=== PATIENT | female | born 1995 | race American Indian/Alaskan Native ===

== ENCOUNTER 2020-07-02 18:44 | Emergency (ER) | payer MEDICAID ==
--- NOTE | 2020-07-02 18:50 | Emergency Department Report ---
Blank Doc - Documentation Documentation: 24-year-old female that presents with abdominal pain and n/v. This initial assessment/diagnostic orders/clinical plan/treatment(s) is/are subject to change based on patient's health status, clinical progression and re- assessment by fellow clinical providers in the ED. Further treatment and workup at subsequent clinical providers discretion. Patient/guardians urged not to elope from the ED as their condition may be serious if not clinically assessed and managed. Initial orders include: 1- Patient sent to [facility] for further evaluation and treatment 2- labs 3- UA
[2020-07-02 18:53] VITALS: BP 125/66
[2020-07-02 19:38] LABS: Basophils % (Auto) 0.4 % (0.0-1.8); Eosinophils # (Auto) 0.1 K/mm3 (0.0-0.4); Eosinophils % (Auto) 0.6 % (0.0-4.3); Hematocrit 34.6 % (30.3-42.9); Hemoglobin 12.2 gm/dl (10.1-14.3); Lymphocytes # (Auto) 2.4 K/mm3 (1.2-5.4); Lymphocytes % (Auto) 22.3 % (13.4-35.0); Mean Corpuscular HGB Conc 35 % (30-34); Mean Corpuscular Volume 94 fl (79-97); Monocytes # (Auto) 0.6 K/mm3 (0.0-0.8); Monocytes % (Auto) 5.5 % (0.0-7.3); Platelet Count 334 K/mm3 (140-440); Red Blood Count 3.69 M/mm3 (3.65-5.03); Red Cell Distribution Width 14.1 % (13.2-15.2)
[2020-07-02 19:42] LABS: Alanine Aminotransferase 12 units/L (7-56); Albumin 4.1 g/dL (3.9-5); Blood Urea Nitrogen 7 mg/dL (7-17); Hemolysis Index 16
[2020-07-02 19:49] LABS: BUN/Creatinine Ratio 14
[2020-07-02] MEDS ORDERED: METOCLOPRAMIDE 10 MG/2 ML INJ IV ONE (21:01)
[2020-07-02] MEDS ORDERED: FAMOTIDINE 20 MG/2 ML INJ IV ONE (21:01)
[2020-07-02] MEDS ORDERED: LACTATED RINGERS 1,000 ML IV ONE (21:01)
[2020-07-02] MEDS ORDERED: diphenhydrAMINE 50 MG/ML VIAL IV ONE (21:01)
--- NOTE | 2020-07-02 21:05 | Emergency Department Report ---
ED General Adult HPI - General Chief complaint: Abdominal Pain Stated complaint: VOMITTING/ABD PAIN Time Seen by Provider: 07/02/20 18:49 Source: patient Mode of arrival: Ambulatory Limitations: No Limitations - History of Present Illness Initial comments: 24-year-old -Polish female patient presents with complaints of nausea and vomiting and abdominal pain x4 days. She reports 3 days ago she had a positive home test. She states she is A0. She denies any vaginal bleeding, vaginal discharge, dyspareunia, dysuria/hematuria/urinary frequency, hematemesis/coffee-ground emesis, diarrhea/constipation, or fever/chills/sweats. Patient rates her current pain as a 4/10 in severity and describes it as a cramping and burning pain. She admits to history of hyperemesis gravidarum in her previous . 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 - Related Data Previous Rx's Medication Instructions Recorded Last Taken Type Metoclopramide [Reglan] 10 mg PO TID PRN #30 tab 07/03/20 Unknown Rx diphenhydrAMINE [Benadryl CAP] 25 mg PO Q8HR PRN #30 capsule 07/03/20 Unknown Rx Allergies Allergy/AdvReac Type Severity Reaction Status Date / Time acetaminophen [From Percocet] Allergy Shortness Verified 07/02/20 18:48 of Breath oxycodone [From Percocet] Allergy Shortness Verified 07/02/20 18:48 of Breath ED Review of Systems ROS: Stated complaint: VOMITTING/ABD PAIN Other details as noted in HPI Constitutional: denies: chills, diaphoresis, fever, malaise, weakness Respiratory: denies: cough, shortness of breath Cardiovascular: denies: chest pain Gastrointestinal: abdominal pain, nausea, vomiting. denies: diarrhea, constipation, hematemesis, melena, hematochezia Genitourinary: denies: urgency, dysuria, frequency, hematuria, discharge, abnormal menses, dyspareunia Skin: denies: change in color Neurological: denies: headache Hematological/Lymphatic: denies: swollen glands ED Past Medical Hx - Past Medical History Hx Asthma: Yes - Surgical History Additional Surgical History: C SECTION - Social History Smoking Status: Never Smoker Substance Use Type: None - Medications Home Medications: Home Medications Medication Instructions Recorded Confirmed Last Taken Type Metoclopramide [Reglan] 10 mg PO TID PRN #30 tab 07/03/20 Unknown Rx diphenhydrAMINE [Benadryl CAP] 25 mg PO Q8HR PRN #30 capsule 07/03/20 Unknown Rx ED Physical Exam - General Limitations: No Limitations General appearance: alert, in no apparent distress - Head Head exam: Present: atraumatic, normocephalic - Eye Eye exam: Present: normal appearance. Absent: scleral icterus - Respiratory Respiratory exam: Absent: respiratory distress - Cardiovascular Cardiovascular Exam: Present: regular rate - GI/Abdominal GI/Abdominal exam: Present: soft, tenderness (Epigastric and suprapubic, mild), normal bowel sounds. Absent: distended, guarding, rebound, rigid - Back Exam Back exam: Present: full ROM - Neurological Exam Neurological exam: Present: alert, oriented X3, normal gait - Psychiatric Psychiatric exam: Present: normal affect, normal mood - Skin Skin exam: Present: warm, dry, intact, normal color. Absent: rash, cyanosis, diaphoretic, ecchymosis ED Course Vital Signs 07/02/20 18:49 Temperature 97.9 F Pulse Rate 82 Respiratory 20 Rate Blood Pressure 125/66 O2 Sat by Pulse 99 Oximetry ED Medical Decision Making - Lab Data Result diagrams: 07/02/20 19:02 07/02/20 19:02 - Medical Decision Making 24-year-old -Polish female patient presents with complaints of nausea and vomiting and abdominal pain x4 days. She reports 3 days ago she had a positive home test. She states she is A0. She denies any vaginal bleeding, vaginal discharge, dyspareunia, dysuria/hematuria/urinary frequency, hematemesis/coffee-ground emesis, diarrhea/constipation, or fever/chills/sweats. Patient rates her current pain as a 4/10 in severity and describes it as a cramping and burning pain. She admits to history of hyperemesis gravidarum in her previous . 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 No significant abnormalities are noted on labs. Ultrasound shows 5-week 3-day IUP. Her vitals are normal, she is tolerating fluids orally without difficulty, she is stable for discharge home. Referral for [facility] given and recommend follow-up within 3 to 5 days. Strict return precautions were discussed in detail with patient who verbalized understanding. Critical care attestation.: If time is entered above; I have spent that time in minutes in the direct care of this critically ill patient, excluding procedure time. ED Disposition Clinical Impression: Hyperemesis gravidarum Abdominal pain in Qualifiers: Trimester: first trimester Qualified Code(s): O26.891 - Other specified related conditions, first trimester; R10.9 - Unspecified abdominal pain Disposition: TO HOME OR SELFCARE Is pt being admited?: No Condition: Stable Instructions: Abdominal Pain (ED), Abdominal Pain During , Hyperemesis Gravidarum Prescriptions: diphenhydrAMINE [Benadryl CAP] 25 mg PO Q8HR PRN #30 capsule PRN Reason: Nausea And Vomiting Metoclopramide [Reglan] 10 mg PO TID PRN #30 tab PRN Reason: Nausea Referrals: [facility] [Provider Group] - 3-5 Days
[2020-07-02 21:17] LABS: Bacteria,Urine 1+ /HPF (Negative); Bilirubin,Urine NEG (Negative); Blood,Urine NEG (Negative); Color,Urine Yellow (Yellow); Mucus,Urine 3+ /HPF; Urobilinogen,Urine < 2.0 mg/dL (<2.0)
--- NOTE | 2020-07-02 23:44 | Ultrasound Report ---
EXAMINATION: Obstetrical Ultrasound INDICATION: Abdominal pain in early COMPARISON: None FINDINGS: There is a single, living intrauterine . [place]-rump length = 0.3 cm = 5 weeks, 6 day(s). heart rate is 114 beats per minute. The bilateral adnexal regions appear within normal limits. There is no free pelvic fluid. IMPRESSION: 1. Single living intrauterine with details as above. Signer Name: Natalie Ojeda MD Signed: 07/02/2020 11:39 PM Workstation Name: [id number]
== END 2020-07-03 00:25 | disposition home or self-care (01) ==
LOC: ED 18:44
DX: O21.0 Mild hyperemesis gravidarum (principal); O21.8 Other vomiting complicating pregnancy; J45.909 Unspecified asthma, uncomplicated; Z3A.01 Less than 8 weeks gestation of pregnancy; Z98.890 Other specified postprocedural states; Z79.899 Other long term (current) drug therapy; Z88.8 Allergy status to other drugs, medicaments and biological substances
CPT/HCPCS: 36415; 76801; 76817; 80053; 81001; 83690; 84702; 85025; 87086; 96361; 96374; 96375; 99284; J1200; J2765; J7120; 87076; 87186

== ENCOUNTER 2021-01-23 06:23 | Outpatient (CLI) | payer MEDICAID ==
[2021-01-23] MEDS ORDERED: LACTATED RINGERS 1,000 ML ONE (06:56)
[2021-01-23] MEDS ORDERED: LACTATED RINGERS 1,000 ML IV SCH (07:15)
[2021-01-23 07:26] VITALS: BP 106/66
== END 2021-01-23 09:04 | disposition home or self-care (01) ==
LOC: TRG 06:23 → APU 06:43 → TRG 09:04
PROVIDERS: ATTEND Obstetrics & Gynecology
DX: O62.9 Abnormality of forces of labor, unspecified (principal); Z3A.35 35 weeks gestation of pregnancy
CPT/HCPCS: 59025; 96361

== ENCOUNTER 2021-04-20 19:58 | Emergency (ER) | payer MEDICAID, OTHER ==
[2021-04-20 20:41] VITALS: BP 125/86
[2021-04-20] MEDS ORDERED: IBUPROFEN 800 MG TAB PO ONE (21:22)
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
== END 2021-04-20 21:50 | disposition home or self-care (01) ==
LOC: ED 19:58
DX: R51.9 Headache, unspecified (principal); J45.909 Unspecified asthma, uncomplicated; Z98.890 Other specified postprocedural states; Z88.5 Allergy status to narcotic agent; Z88.6 Allergy status to analgesic agent; V89.2XXA Person injured in unspecified motor-vehicle accident, traffic, initial encounter; Y93.89 Activity, other specified; Y92.89 Other specified places as the place of occurrence of the external cause; Y99.8 Other external cause status
CPT/HCPCS: 99282